=== PATIENT | male | born 1960 | race Caucasian/White ===

== ENCOUNTER 2018-11-11 05:03 | Day surgery (SDC) | payer OTHER ==
[~2018-11-11] VITALS: Ht 348 cm; Wt 95.3 kg
[2018-11-11 05:51] LABS: HEMATOCRIT 41.2 % (42.0-54.0); HEMOGLOBIN 14.9 g/dL (13.5-17.5); MCH 32.1 pg (26.0-34.0); MCHC 36.2 g/dL (31.0-37.0); MCV 88.8 fL (80.0-100.0); MEAN PLATELET VOLUME 9.3 fL (7.4-10.4); RBC 4.64 10x6/uL (4.20-6.10); RDW 12.7 % (11.5-14.5); WBC 7.6 10x3/uL (4.8-10.8)
[2018-11-11 06:06] LABS: CALC OSMOLALITY 276 mosm/kg (275-300); CALCIUM 8.7 mg/dL (8.5-10.1); CARBON DIOXIDE 24.9 mmol/L (21.0-32.0); CHLORIDE - SERUM 102 mmol/L (98-107); GLUCOSE 167 mg/dL (74-106); POTASSIUM - SERUM 3.9 mmol/L (3.5-5.1); SODIUM 137 mmol/L (136-145); UREA NITROGEN 11 mg/dL (7-18); eGFR NON AFRICAN AMERICAN 82 mL/min (90-120)
[2018-11-11] MEDS ORDERED: ZOLOFT100 MG PO (06:46)
[2018-11-11] MEDS ORDERED: BAYER CHEWABLE81 MG PO (06:47)
[2018-11-11] MEDS ORDERED: CARBIDOPA-LEVO1 EAC2 PO (06:48)
[2018-11-11] MEDS ORDERED: GLUCOTROL 5 MG T5 MG PO (06:49)
[2018-11-11] MEDS ORDERED: TEGRETOL XR200 M1 PO (06:50)
[2018-11-11 07:01] VITALS: BP 128/72; Ht 348 cm; Wt 95.3 kg
--- NOTE | 2018-11-11 12:27 | NUR ---
1215 IV REMOVED AND PT VOIDED
--- NOTE | 2018-11-11 18:45 | OP ---
PATIENT NAME: CALE CASON MEDICAL RECORD: [id number] :62 LOCATION:D[facility] ADMISSION DATE: SURGEON: ERICA TARIQ MD DATE OF OPERATION: 11/11/2018 PREOPERATIVE DIAGNOSIS: Symptomatic right inguinal hernia. POSTOPERATIVE DIAGNOSES: 1. Symptomatic right direct inguinal hernia. 2. Right cord lipoma versus a lymph node. PROCEDURES: 1. Open right indirect inguinal hernia repair with bilayered preperitoneal polypropylene mesh. 2. Excision of right cord lipoma versus lymph node. SURGEON: Erica Tariq MD FAMILY [employer] CONSUMER EDUCATION TEACHER: Darin Ward scrub technologist BLOOD LOSS: Minimal. ANESTHESIA: General. COMPLICATIONS: None. The risks, possible complications, and alternatives to the procedure were explained to the patient. He elects to proceed. The discussion specifically included, but was not limited to, bleeding requiring an emergency reoperation, infection, chronic pain, injury to the testicular artery or vein, injury to the vas deferens. OPERATIVE COURSE: The patient was conveyed to the operating room electively on 11/11/2018. General anesthesia was induced by anesthesia staff. The abdomen and genitals were sterilely prepped and draped. A transverse incision was accomplished in the right groin. Sharp dissection was carried down through skin and subcutaneous tissue as well as Elaine fascia. The internal oblique aponeurosis was incised along the direction of its fibers. I bluntly dissected down through the internal oblique and transverse abdominis muscles. A preperitoneal pocket was fashioned bluntly. A direct hernia was reduced in its entirety. There was no femoral component. There was no indirect component. I cut 2 ovals out of the polypropylene mesh. These 2 ovals were sutured together one on top of the other with a running #1 Surgidac. I noted either a lymph node or a cord lipoma. This was excised with electrocautery. I placed the mesh in the preperitoneal space. Once I was satisfied with placement of the mesh in the preperitoneal space, I sutured the internal oblique and transverse abdominis muscles together with multiple interrupted horizontal mattress 0 Surgidacs. The external oblique aponeurosis was then closed with running #1 Vicryls. Elaine fascia was approximated with interrupted 3-0 Vicryl. The skin was approximated with a running intracuticular 3-0 Vicryl. Benzoin and Steri-Strips were applied. The patient was then extubated and conveyed to the post-anesthesia care unit where he was in stable condition. [facility] will be dismissed back to [facility] with OPERATIVE REPORT [id number] CALE CASON as well as Shilpa. There is no need for him to see me in the office unless he develops a complication related to this operative procedure. I could see him at the [facility] on rounds. TRANSINT:[id number] Voice Confirmation ID: [id number] DOCUMENT ID: [id number] ERICA TARIQ MD at 1845 CC: RHEA HODGES MD, ROSE LUBIN MD and GABRIEL HERNANDEZ [id number] DICTATION DATE: 11/11/18 1023 DAMAGE ASSESSOR: 11/11/18 1041 [facility] 11/11/18 [id number] [place] [address]
== END 2018-11-11 12:20 ==
LOC: D.OPS 05:03
PROVIDERS: Anesthesiology; ATTEND Surgery
DX: K40.90 Unilateral inguinal hernia, without obstruction or gangrene, not specified as recurrent (principal); R59.0 Localized enlarged lymph nodes; Z01.812 Encounter for preprocedural laboratory examination